=== PATIENT | female | born 1940 | race Caucasian/White ===

== ENCOUNTER 2018-01-31 12:16 | Emergency (ER) | payer OTHER ==
[~2018-01-31] VITALS: Ht 157.5 cm; Wt 58.7 kg
[~2018-01-31 12:16] MED LIST: CELEXA10 MG PO; GAS RELIEF80 MG PO; KEFLEX500 MG PO; LAC PO; LOSARTAN POTASS25 M1 PO; OMEPRAZOLE40 M1 PO; ONDANSETRON4 M3 PO
[2018-01-31 12:33] VITALS: Ht 157.5 cm; Wt 58.7 kg
[2018-01-31 14:18] LABS: BASOPHIL % 0.5 % (0-2); PLATELET COUNT 365 x10^3mcL (130-400); RED CELL DISTRIBUTION WIDTH 13.1 % (11.5-14.5)
[2018-01-31 14:34] LABS: CALCIUM 8.9 mg/dL (8.5-10.1); CARBON DIOXIDE 27.5 mmol/L (21-32); CHLORIDE SERUM 92 mmol/L (98-107); CREATININE SERUM 0.8 mg/dL (0.6-1.0); GLUCOSE SERUM 100 mg/dL (74-106); POTASSIUM SERUM 4.6 mmol/L (3.5-5.1); SODIUM SERUM 125 mmol/L (136-145)
[2018-01-31 16:24] VITALS: BP 130/70
== END 2018-01-31 16:24 | disposition home or self-care (01) ==
LOC: ED 12:16
PROVIDERS: Emergency Medicine
DX: R51 Headache (principal); R68.84 Jaw pain; E87.1 Hypo-osmolality and hyponatremia; I10 Essential (primary) hypertension; E78.00 Pure hypercholesterolemia, unspecified; Z98.818 Other dental procedure status
CPT/HCPCS: 36415; J3010

== ENCOUNTER 2018-04-18 17:52 | Inpatient (IN) | payer OTHER, MEDICAID ==
[~2018-04-18] VITALS: Ht 154.9 cm; Wt 59.0 kg
[2018-04-18 18:55] LABS: BASOPHIL % 0.4 % (0-2); PLATELET COUNT 388 x10^3mcL (130-400); RED CELL DISTRIBUTION WIDTH 12.8 % (11.5-14.5)
[2018-04-18 19:08] LABS: ALBUMIN 4.1 g/dL (3.4-5.0); ALKALINE PHOSPHATASE 126 U/L (46-116); ALT/SGPT 38 U/L (14-59); AST/SGOT 20 U/L (15-37); CALCIUM 8.3 mg/dL (8.5-10.1); CARBON DIOXIDE 22.8 mmol/L (21-32); CHLORIDE SERUM 88 mmol/L (98-107); CREATININE SERUM 0.8 mg/dL (0.6-1.0); GLUCOSE SERUM 109 mg/dL (74-106); LIPASE 105 IU/L (73-393); POTASSIUM SERUM 4.6 mmol/L (3.5-5.1); TRIGLYCERIDES 45 mg/dL (<150)
[2018-04-18 19:11] LABS: CHOLESTEROL 209 mg/dL (<200); CHOLESTEROL/HDL RATIO 2.3; HDL CHOLESTEROL 91 mg/dL (40-60)
[2018-04-18 19:12] LABS: SODIUM SERUM 118 mmol/L (136-145)
[2018-04-18 19:32] LABS: T3 TOTAL 1.03 ng/mL
[2018-04-18 19:53] LABS: FREE T4 1.45 ng/dL (0.76-1.46); FREE THYROXINE INDEX 4.1 ug/dL (1.4-4.5); T4(THYROXINE) 11.7 ug/dL (4.7-13.3)
[2018-04-18 20:00] LABS: MAGNESIUM 2.1 mg/dL (1.8-2.4); PHOSPHOROUS 2.5 mg/dL (2.5-4.9)
[2018-04-18 20:45] LABS: UA SPECIFIC GRAVITY <=1.005 (1.005-1.035); microscopic required? YES; urine erythrocyte NEGATIVE (NEGATIVE)
[2018-04-18 20:48] VITALS: BP 166/62
[2018-04-18 20:55] VITALS: Ht 154.9 cm; Wt 59.0 kg
[2018-04-18 20:55] LABS: AMPHETAMINE QUAL UR NONE DETECTED (See below)
[2018-04-18] MEDS ORDERED: LEVOTHYROXIN0.075 M2 PO (22:07)
[2018-04-18] MEDS ORDERED: AMBIEN5 MG PO (22:27)
[2018-04-19 05:46] VITALS: BP 127/67
[2018-04-19 06:13] LABS: BASOPHIL % 0.5 % (0-2); PLATELET COUNT 322 x10^3mcL (130-400); RED CELL DISTRIBUTION WIDTH 12.9 % (11.5-14.5)
[2018-04-19 06:52] LABS: CARBON DIOXIDE 22.1 mmol/L (21-32); CHLORIDE SERUM 96 mmol/L (98-107); CREATININE SERUM 0.8 mg/dL (0.6-1.0); GLUCOSE SERUM 88 mg/dL (74-106); PHOSPHOROUS 2.8 mg/dL (2.5-4.9); POTASSIUM SERUM 4.3 mmol/L (3.5-5.1); SODIUM SERUM 127 mmol/L (136-145)
[2018-04-19 08:36] VITALS: BP 149/62
[2018-04-19 15:00] VITALS: BP 166/62
[2018-04-19 17:05] VITALS: BP 177/83
[2018-04-19 17:38] LABS: CARBON DIOXIDE 24.1 mmol/L (21-32); CHLORIDE SERUM 101 mmol/L (98-107); CREATININE SERUM 0.7 mg/dL (0.6-1.0); GLUCOSE SERUM 118 mg/dL (74-106); POTASSIUM SERUM 4.7 mmol/L (3.5-5.1); SODIUM SERUM 132 mmol/L (136-145)
[2018-04-19 18:30] VITALS: BP 121/73
[2018-04-19 19:05] VITALS: BP 148/59
[2018-04-20] VITALS (8 sets, daily range): BP systolic 142–185; BP diastolic 49–449
[2018-04-20 07:19] LABS: BASOPHIL % 0.6 % (0-2); PLATELET COUNT 348 x10^3mcL (130-400); RED CELL DISTRIBUTION WIDTH 13.4 % (11.5-14.5)
[2018-04-20 07:31] LABS: CALCIUM 8.3 mg/dL (8.5-10.1); CARBON DIOXIDE 23.7 mmol/L (21-32); CHLORIDE SERUM 100 mmol/L (98-107); CREATININE SERUM 0.7 mg/dL (0.6-1.0); GLUCOSE SERUM 94 mg/dL (74-106); MAGNESIUM 1.9 mg/dL (1.8-2.4); PHOSPHOROUS 2.5 mg/dL (2.5-4.9); POTASSIUM SERUM 4.2 mmol/L (3.5-5.1); SODIUM SERUM 134 mmol/L (136-145)
[2018-04-21 05:12] VITALS: BP 174/82
[2018-04-21 07:39] LABS: BASOPHIL % 0.3 % (0-2); PLATELET COUNT 323 x10^3mcL (130-400); RED CELL DISTRIBUTION WIDTH 13.5 % (11.5-14.5)
[2018-04-21 07:55] LABS: CALCIUM 8.6 mg/dL (8.5-10.1); CARBON DIOXIDE 26.7 mmol/L (21-32); CHLORIDE SERUM 92 mmol/L (98-107); CREATININE SERUM 0.6 mg/dL (0.6-1.0); GLUCOSE SERUM 101 mg/dL (74-106); MAGNESIUM 1.6 mg/dL (1.8-2.4); PHOSPHOROUS 2.9 mg/dL (2.5-4.9); SODIUM SERUM 128 mmol/L (136-145)
[2018-04-21 09:16] VITALS: BP 151/58
[2018-04-21 13:51] VITALS: BP 177/74
[2018-04-21 17:24] VITALS: BP 180/76
[2018-04-21 19:20] VITALS: BP 151/52
[2018-04-21 20:53] VITALS: BP 151/52
[2018-04-22 06:30] VITALS: BP 124/54
[2018-04-22 06:35] LABS: BASOPHIL % 0.3 % (0-2); PLATELET COUNT 367 x10^3mcL (130-400); RED CELL DISTRIBUTION WIDTH 13.2 % (11.5-14.5)
[2018-04-22 07:17] LABS: CALCIUM 8.5 mg/dL (8.5-10.1); CHLORIDE SERUM 85 mmol/L (98-107); CREATININE SERUM 0.7 mg/dL (0.6-1.0); GLUCOSE SERUM 112 mg/dL (74-106); MAGNESIUM 1.7 mg/dL (1.8-2.4); PHOSPHOROUS 3.5 mg/dL (2.5-4.9); POTASSIUM SERUM 4.3 mmol/L (3.5-5.1)
[2018-04-22 07:25] LABS: SODIUM SERUM 120 mmol/L (136-145)
[2018-04-22 09:46] VITALS: BP 148/57
[2018-04-22 12:52] VITALS: BP 149/65
[2018-04-22 16:02] LABS: CALCIUM 8.6 mg/dL (8.5-10.1); CARBON DIOXIDE 25.6 mmol/L (21-32); CHLORIDE SERUM 83 mmol/L (98-107); CREATININE SERUM 0.8 mg/dL (0.6-1.0); GLUCOSE SERUM 113 mg/dL (74-106); POTASSIUM SERUM 4.5 mmol/L (3.5-5.1)
[2018-04-22 16:06] LABS: SODIUM SERUM 117 mmol/L (136-145)
[2018-04-22 16:57] VITALS: BP 153/72
[2018-04-22 17:07] LABS: CALCIUM 8.4 mg/dL (8.5-10.1); CARBON DIOXIDE 28.3 mmol/L (21-32); CHLORIDE SERUM 86 mmol/L (98-107); CREATININE SERUM 0.7 mg/dL (0.6-1.0); GLUCOSE SERUM 99 mg/dL (74-106); POTASSIUM SERUM 4.6 mmol/L (3.5-5.1)
[2018-04-22 17:11] LABS: SODIUM SERUM 118 mmol/L (136-145)
[2018-04-22 19:15] VITALS: BP 158/57
[2018-04-22 21:01] VITALS: BP 143/52
[2018-04-22 21:28] LABS: CALCIUM 8.1 mg/dL (8.5-10.1); CARBON DIOXIDE 25.3 mmol/L (21-32); CHLORIDE SERUM 88 mmol/L (98-107); CREATININE SERUM 0.8 mg/dL (0.6-1.0); GLUCOSE SERUM 126 mg/dL (74-106); POTASSIUM SERUM 3.7 mmol/L (3.5-5.1)
[2018-04-22 21:30] LABS: SODIUM SERUM 122 mmol/L (136-145)
[2018-04-23 05:52] VITALS: BP 123/51
[2018-04-23 06:00] LABS: BASOPHIL % 0.3 % (0-2); PLATELET COUNT 304 x10^3mcL (130-400); RED CELL DISTRIBUTION WIDTH 13.1 % (11.5-14.5)
[2018-04-23 06:29] LABS: CALCIUM 8.5 mg/dL (8.5-10.1); CARBON DIOXIDE 25.2 mmol/L (21-32); CHLORIDE SERUM 92 mmol/L (98-107); CREATININE SERUM 0.8 mg/dL (0.6-1.0); GLUCOSE SERUM 91 mg/dL (74-106); MAGNESIUM 1.9 mg/dL (1.8-2.4); PHOSPHOROUS 3.7 mg/dL (2.5-4.9); POTASSIUM SERUM 4.2 mmol/L (3.5-5.1); SODIUM SERUM 126 mmol/L (136-145)
[2018-04-23 08:28] VITALS: BP 148/57
[2018-04-23 12:19] VITALS: BP 126/47
[2018-04-23 17:07] VITALS: BP 125/53
[2018-04-24 05:30] VITALS: BP 161/61
[2018-04-24 06:20] LABS: BASOPHIL % 0.5 % (0-2); PLATELET COUNT 340 x10^3mcL (130-400); RED CELL DISTRIBUTION WIDTH 13.6 % (11.5-14.5)
[2018-04-24 06:47] LABS: T4(THYROXINE) 11.6 ug/dL (4.7-13.3)
[2018-04-24 06:48] LABS: CALCIUM 8.5 mg/dL (8.5-10.1); CARBON DIOXIDE 28.7 mmol/L (21-32); CHLORIDE SERUM 101 mmol/L (98-107); CREATININE SERUM 0.7 mg/dL (0.6-1.0); GLUCOSE SERUM 90 mg/dL (74-106); POTASSIUM SERUM 4.3 mmol/L (3.5-5.1); SODIUM SERUM 134 mmol/L (136-145)
[2018-04-24 06:53] LABS: T3 TOTAL 0.81 ng/mL
[2018-04-24 08:57] VITALS: BP 162/74
[2018-04-24 12:43] VITALS: BP 147/57
[2018-04-24] MEDS ORDERED: COZ25 PO (13:03)
[2018-04-24] MEDS ORDERED: SOD1 PO ×2 (13:03→13:56)
[2018-04-24] MEDS ORDERED: TOP50 PO (13:03)
[2018-04-24 15:42] VITALS: BP 147/57
== END 2018-04-24 17:38 | disposition home or self-care (01) | DRG 643 ==
LOC: ED 17:52 → DU 19:37
PROVIDERS: Family Medicine; General Practice; Internal Medicine Nephrology; Specialist
DX: E22.2 Syndrome of inappropriate secretion of antidiuretic hormone (principal); N17.0 Acute kidney failure with tubular necrosis; N39.0 Urinary tract infection, site not specified; I10 Essential (primary) hypertension; I16.0 Hypertensive urgency; E83.42 Hypomagnesemia; K29.70 Gastritis, unspecified, without bleeding; G43.909 Migraine, unspecified, not intractable, without status migrainosus; E03.9 Hypothyroidism, unspecified; Z96.641 Presence of right artificial hip joint; Z68.23 Body mass index [BMI] 23.0-23.9, adult
CPT/HCPCS: 82962; 83880; 84439; 90658; A9577; A9579; J0360; J0696; J1885; J2405; J2550; J2765; J3490; Q0092; Q9967

== ENCOUNTER 2018-06-07 18:43 | Emergency (ER) | payer OTHER, MEDICAID ==
[~2018-06-07] VITALS: Ht 152.4 cm; Wt 58.5 kg
[~2018-06-07 18:43] MED LIST changes: +AMBIEN5 MG PO; +COZ25 PO; +LEVOTHYROXIN0.075 M2 PO; +SOD1 PO; +TOP50 PO
[2018-06-07 18:54] VITALS: Ht 152.4 cm; Wt 58.5 kg
[2018-06-07 19:33] LABS: BASOPHIL % 0.6 % (0-2); PLATELET COUNT 317 x10^3mcL (130-400); RED CELL DISTRIBUTION WIDTH 13.9 % (11.5-14.5)
[2018-06-07 19:47] LABS: CALCIUM 8.9 mg/dL (8.5-10.1); CARBON DIOXIDE 21.5 mmol/L (21-32); CHLORIDE SERUM 96 mmol/L (98-107); CREATININE SERUM 0.9 mg/dL (0.6-1.0); GLUCOSE SERUM 100 mg/dL (74-106); POTASSIUM SERUM 4.3 mmol/L (3.5-5.1); SODIUM SERUM 129 mmol/L (136-145)
[2018-06-07 19:52] LABS: ALBUMIN 3.8 g/dL (3.4-5.0); ALKALINE PHOSPHATASE 83 U/L (46-116); ALT/SGPT 17 U/L (14-59); AMYLASE 51 U/L (25-115); AST/SGOT 13 U/L (15-37); BILIRUBIN TOTAL 0.46 mg/dL (0.20-1.00); LIPASE 110 IU/L (73-393); TOTAL PROTEIN, SERUM 7.3 g/dL (6.4-8.2)
[2018-06-07 21:34] VITALS: BP 151/67
== END 2018-06-07 21:34 | disposition home or self-care (01) ==
LOC: ED 18:43
PROVIDERS: Emergency Medicine
DX: R10.13 Epigastric pain (principal); R11.0 Nausea; I10 Essential (primary) hypertension; E78.00 Pure hypercholesterolemia, unspecified; Z98.890 Other specified postprocedural states
CPT/HCPCS: J1885; J2405